=== PATIENT | female | born 1940 | race Caucasian/White ===

== ENCOUNTER 2017-01-15 20:28 | Emergency (ER) | payer MEDICARE ==
[~2017-01-15] VITALS: Ht 167.6 cm; Wt 84.0 kg
[~2017-01-15 20:28] MED LIST: ATOR40TA69 PO; FLUT50DI IH; METO25TA6 PO; MV-M1CAP15 PO; PRAM0.256 PO; SERT20OR6 PO; WARF5TAB7 PO
[2017-01-15 20:36] VITALS: BP 146/77; PULSE 89; RESP 20; O2SAT 98
--- NOTE | 2017-01-15 23:11 | ED.REPORT ---
HPI-Extremity Problem Upper Date of Service Jan 15, 2017 ED Provider: Michael Rodriguez MD The patient is a 76 year old female with a hx of atrial fibrillation, cardiac stents x3, on Warfarin, DM and proximal humerus fracture 20 years ago presenting to the ED complaining of "hard, throbbing" right shoulder pain onset 6 hours ago. She describes the pain as throbbing and claims that it radiates down her right arm. The pain is exacerbated by moving. She says that she has had this pain previously and it is usually relieved by Tylenol, but she has taken 2 extra strength Tylenol tonight with no relief. She denies doing anything that could have caused an injury. The pt has her INR checked today, and it was therapeutic. Nursing Notes Stated Complaint: RIGHT ARM PAIN Chief Complaint: Extremity Trauma Nursing Notes Reviewed: Yes Allergies: Coded Allergies: niacin (Verified Adverse Reaction, Mild, Flushing, 02/07/11) Scheduled Atorvastatin Calcium (Atorvastatin Calcium) 40 Mg Tablet 40 MG PO HS Fluticasone Propionate (Flovent Diskus) 50 Mcg Disk.w.dev 1 PUFF IH BID Metoprolol Tartrate (Metoprolol Tartrate) 25 Mg Tablet 25 MG PO BID Mv-Mn/FA/Vit K/Lycop/Lut/Coq10 (Daily Multivitamin Capsule) 200-100MCG Capsule 1 EACH PO DAILY Pramipexole Dihydrochloride (Pramipexole Dihydrochloride) 0.25 Mg Tablet 0.25 MG PO DAILY Sertraline HCl (Sertraline) 20 Mg/1 Ml Oral.conc 25 MG PO BID Warfarin Sodium (Warfarin Sodium) 5 Mg Tablet 5 MG PO DAILY General Time Seen by MD: 23:09 Chief Complaint Other (right shoulder pain) Hx Obtained From: Patient Arrived By: Walk-in Onset Occurred: 5 - 8 hours ago Symptom Duration: Since onset Location: : Shoulder right Quality: Throbbing Exacerbated by: Movement Recent Healthcare: No recent hospitalization, Recent doctor visit Similar Sx Previous: Yes Past Medical History Past Medical History Proximal right humerus fracture Atrial fibrillation DM Cardiac stents x 3 Right proximal humerus fracture on Warfarin breast cancer depression Past Surgical History Cardiac stents x3 Smoking History Unknown if Ever Smoker Social History Other Social History: Good social support Ambulatory Status Independent Review of Systems Musculoskeletal: Reports: Extremity pain (right arm), Joint pain (right shoulder), Denies: Neck pain Skin: Denies Rash Complete sys rev & neg: except as marked. Respiratory: Denies: Non-productive cough, Shortness of breath Cardiovascular: Denies: Chest pain GI: Denies: Abdominal pain, Vomiting Physical Exam Initial Vital Signs Vital Signs (First) Date Time Temp Pulse Resp B/P Pulse Ox O2 Delivery O2 Flow Rate FiO2 01/15/17 20:36 36.8 89 20 146/77 98 Room Air Initial VS: Reviewed Respiratory / Chest: Atraumatic, Breath sounds NL, Breath sounds = bilat, No respiratory distress Cardiovascular: Heart rate NL Heart Rate / Rhythm: Positive: Irreg irregular rhythm Heart Sounds / Murmur: Positive: Murmur present... (2/6 systolic murmur) Upper Extremity / MS: Atraumatic Tender to the biceps and joint line of right shoulder Pain with active range of motion No erythema or palpable mass Vascularly intact distally No axillary adenopathy Neurologic: Oriented X3, Speech NL, No motor deficits motor function in hand intact Interpretation & Diagnostics ECG Interpretation ECG Interpretation: Atrial fibrillation Rate 83 Time: 23:21 X-Ray Interpretation Xray Interpretation: Right Shoulder X-Ray: Arthritic changes No acute injury X-Ray Ordered: Shoulder right Interpretation / Wet Read by: Wet read ED physician Interpretation: No fracture/dislocation Re-Eval/Medical Decision Re-Evaluation/Progress : Time of Eval: 23:50 Re-Evaluation/Progress Note: Patient rechecked. Physical exam performed. Discussed plan to discharge. Patient understands and agrees with the plan. All questions addressed at this time. Discharge & Departure Impression: Primary Impression: Right shoulder pain Chronicity: acute Qualified Code: M25.511 - Pain in right shoulder Disposition: Home Additional Instructions: Emergency Department evaluation included interview examination and ECG. Right shoulder pain is thought to be musculoskeletal given his history of right shoulder pain tenderness in right shoulder and pain with movement. The x-ray of the shoulder shows severe arthritic changes by emergency physician interpretation. May use Tylenol as needed for pain, for severe pain may use Vicodin one half to one once or twice a day. Recall that every Vicodin as a dose of 325 mg of Tylenol in it. Total daily Tylenol dose should not exceed 3000 mg. Make an appointment to see your primary care doctor as soon as possible. Continue other previous home medications. Thank pressing up with your care tonight Referrals: Papa Alvarez MD (PCP) Scribe Attestation Portions of this note were transcribed by Justin Barron and Cristobal Burton. I, Dr. Rodriguez personally performed the history, physical exam and medical decision- making; I reviewed and confirmed the accuracy of the information in the transcribed note. Signed by: Herlinda Perez, 01/16/2017 copies to: Papa Alvarez MD, Donald L MD Jan 15, 2017 23:11 Jan 15, 2017 23:50 JUSTIN BARRON Jan 16, 2017 01:02
[2017-01-16] MEDS ORDERED: _HYDROcodone/APAP 5-325 mg Tablet PO PRN
[2017-01-16 00:52] VITALS: BP 142/72; PULSE 82; RESP 18; O2SAT 97
--- NOTE | 2017-01-16 09:16 | DRSVH ---
PROCEDURE: X-RAY RIGHT SHOULDER, MINIMUM TWO VIEWS ([id number]) INDICATIONS: shoulder pain TECHNIQUE: 3 views of the shoulder were acquired. COMPARISON: None. FINDINGS: Bones: No fractures or dislocations. No suspicious bony lesions. Visualized ribs appear intact. S evere right shoulder degeneration with [id number] appearance and marked chronic deformity Soft tissues: No suspicious soft tissue calcifications. Scattered surgical clips projecting in the axilla IMPRESSION: No acute fracture. Advanced right shoulder joint degeneration with [id number] appearance and chronic deformity. Dictated by: David Martinez M.D. on 01/16/2017 at 9:13 Approved by: David Martinez M.D. on 01/16/2017 at 9:14
== END 2017-01-16 00:53 | disposition home or self-care (01) ==
LOC: SED 20:28
DX: M25.511 Pain in right shoulder (principal); E11.59 Type 2 diabetes mellitus with other circulatory complications; I48.91 Unspecified atrial fibrillation; F32.9 Major depressive disorder, single episode, unspecified; Z85.3 Personal history of malignant neoplasm of breast; Z87.81 Personal history of (healed) traumatic fracture; Z95.5 Presence of coronary angioplasty implant and graft; Z79.01 Long term (current) use of anticoagulants; Z88.8 Allergy status to other drugs, medicaments and biological substances